=== PATIENT | female | born 1965 | race Caucasian/White ===

== ENCOUNTER → 2018-04-24 | Outpatient (CLI) | payer BC, OTHER ==
[~2018-04-24] MED LIST: IBUP-2704 PO; LOOVRAL PO; PER PO
--- NOTE | 2018-04-24 13:30 | RADIOLOGY IMAGING REPORT ---
FACILITY: [facility] - [place] PATIENT NAME: LANETTE ENRIQUEZ : [id number] MR: [id number] V: [id number] EXAM DATE: [id number] ORDERING PHYSICIAN: ANYA UMANA TECHNOLOGIST: Sola Philippe PROCEDURE:BILATERAL DIGITAL SCREENING MAMMOGRAM WITH CAD ASSISTED INTERPRETATION & 3D TOMOSYNTHESIS COMPARISON:Prior mammograms dated 01/27/13, 01/24/12 INDICATIONS:SCREENING FINDINGS: The breasts are heterogeneously dense which can obscure small masses. The parenchymal pattern has remained stable allowing for difference in mammographic technique & patient positioning. DIAGNOSTIC CATEGORY 1--NEGATIVE. RECOMMENDATIONS: ROUTINE MAMMOGRAM AND CLINICAL EVALUATION. IMPRESSION: BIRADS 1: Negative. No significant abnormality is seen. Dictated by: Lanette Perera M.D. on 04/24/2018 at 13:16 Transcribed by: ALYSSA on 04/24/2018 at 13:23 Approved by: Lanette Perera M.D. on 04/24/2018 at 13:28 [facility]
== END ==
LOC: MAMO 00:38
PROVIDERS: ATTEND Obstetrics & Gynecology
DX: Z12.31 Encounter for screening mammogram for malignant neoplasm of breast (principal); Z80.3 Family history of malignant neoplasm of breast
CPT/HCPCS: 77063; 77067